=== PATIENT | female | born 1990 | race Caucasian/White ===

== ENCOUNTER → 2016-12-09 | Outpatient (CLI) | payer OTHER ==
--- NOTE | 2016-12-09 13:14 | KCIC ---
Complete abdominal ultrasound History:Elevated LFTs. Findings: Aorta: No evidence of aneurysm. Inferior vena cava: Patent Pancreas: Poorly visualized, particularly the tail. Liver: Enlarged, 21 cm longitudinal. Coarse echogenicity compatible with fatty infiltration. Gallbladder: No evidence of cholelithiasis, gallbladder wall thickening or pericholecystic fluid. Bile ducts: Common bile duct measures 5 mm diameter. No significant biliary dilatation. Right kidney: 11.2 cm longitudinal without hydronephrosis. Left kidney: 11.4 cm longitudinal without hydronephrosis. Spleen: Not enlarged. Impression: Hepatomegaly with steatosis. Electronically signed by: Migue Aviles MD (12/09/2016 1:10 PM) [facility]
== END | disposition home or self-care (01) ==
LOC: KCIC US 07:54
PROVIDERS: ATTEND Family Medicine
DX: R79.89 Other specified abnormal findings of blood chemistry (principal); R16.0 Hepatomegaly, not elsewhere classified
CPT/HCPCS: 76700